=== PATIENT | male | born 1950 | race Caucasian/White ===

== ENCOUNTER → 2019-12-06 | Outpatient (CLI) | payer MEDICARE, OTHER, SELFPAY ==
--- NOTE | 2019-12-06 15:00 | RAD_ITS ---
STUDY: X-RAY CHEST REASON FOR EXAM: Male, 69 years old. HAS HAD COUGH FOR 5-6 WEEKS. TECHNIQUE: PA and lateral views of the chest. COMPARISON: None. FINDINGS: The lungs are clear and expanded. There is no demonstrated pleural abnormality. Normal size heart. Normal mediastinum and kemal. Normal visualized pulmonary arteries. Normal visualized aortic arch and descending thoracic aorta. Normal visualized thoracic spine. Normal visualized ribs, clavicles, and shoulders. There is no demonstrated abnormality of the visualized soft tissue structures of the upper abdomen. RAD/Chest PA and Lateral IMPRESSION: Normal x-ray examination of the chest. Electronically Signed: Pedro Maya MD at 9:34 EST Tel , Service support ,
== END | disposition home or self-care (01) ==
DX: R05 Cough (principal)
CPT/HCPCS: 71046

== ENCOUNTER → 2022-10-27 | Outpatient (CLI) | payer MEDICARE, OTHER, SELFPAY | END | disposition home or self-care (01) | PROVIDERS: Referring Provider Internal Medicine Critical Care Medicine; Visit Provider Internal Medicine Critical Care Medicine | DX: G47.10 Hypersomnia, unspecified (principal) | CPT/HCPCS: 95810 ==

== ENCOUNTER 2022-11-13 10:31 | Emergency (ER) | payer MEDICARE, OTHER, SELFPAY ==
[2022-11-13 10:32] VITALS: BP 132/92; PULSE 76; RESP 17; TEMP 35.7; O2SAT 97; BMI 28.5
--- NOTE | 2022-11-13 10:53 | RAD_ITS ---
STUDY: X-RAY - UNILATERAL RIBS ( LEFT ) WITH CHEST REASON FOR EXAM: Male, 72 years old. Chest and rib pain after fall TECHNIQUE - RIBS: 4 view(s) of the ribs. TECHNIQUE - CHEST: Single PA view of the chest. COMPARISON: None. FINDINGS - RIBS: Normal visualized ribs without a demonstrated fracture. FINDINGS - CHEST: The lungs are clear and expanded. There is no demonstrated pleural abnormality. Normal size heart. Normal mediastinum and kemal. Normal visualized pulmonary arteries. Normal visualized aortic arch and descending thoracic aorta. There are diffuse degenerative changes of the visualized thoracic spine. Normal visualized ribs, clavicles, and shoulders. There is no demonstrated abnormality of the visualized soft tissue structures of the upper abdomen. RAD/Ribs Uni Min 3V w/PA Chest IMPRESSION: RIBS: Normal x-ray examination of the ribs. CHEST: No acute pulmonary process Electronically Signed: Ramana Warner MD at 11:16 EST ,
--- NOTE | 2022-11-13 10:54 | EDS_ITS ---
HPI HPI - Fall History of Present Illness Chief Complaint: Fall Informant: patient Narrative Narrative: Patient is a 72-year-old male presenting with left-sided rib pain after fall. 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 He is not exactly sure how he landed but he struck his left ribs and is having significant pain at this time. He denies seeing his head or any loss of conscious. He notes immediately after the fall he was little dizzy but attributes that to his pain. His is currently out of town skiing so he drove himself to the emergency room. He denies any associated numbness, focal weakness or any other complaints. He is not on any blood thinners. Did not take anything for pain prior to arrival. No other complaints at this time. PFSH PFSH Home Medications oxycodone-acetaminophen 5 mg-325 mg tablet (Percocet) 1 tab PO Q6H PRN pain 3 days #12 tabs 11/13/22 [Rx Last Taken Unknown] Allergy/AdvReac Type Severity Reaction Status Date / Time No Known Allergies Allergy Verified 11/13/22 10:31 Social History Smoking Status: Never smoker ROS ROS ED Constitutional Constitutional ED: Denies chills or fever(s) Eyes Eyes: Denies blurry vision Cardiovascular Cardiovascular: Reports chest pain Respiratory/Chest Respiratory/Chest: Denies cough or dyspnea Gastrointestinal Gastrointestinal: Denies nausea or vomiting Integumentary Denies Abrasions or rash Neurologic Neurologic: Denies headache(s) or paresthesias Hematologic/Lymphatic Hematologic/Lymphatic: Denies easy bleeding or easy bruising EXAM Physical Exam Const Vital Signs: 11/13/22 10:32 11/13/22 10:39 Temperature 96.2 F L Temperature Source Temporal Pulse Rate 76 Respiratory Rate 17 Respiratory Effort Normal Non-Labored Respiratory Depth Normal Respiratory Pattern Normal Blood Pressure 132/92 H Blood Pressure Mean 105 Pulse Ox 97 Oxygen Delivery Method Room Air Room Air Positive well nourished and well developed General Appearance ED: well developed and NAD HEENT Reports normocephalic atraumatic Eyes PERRL and EOMs intact bilaterally Neck full ROM and supple General: Negative for tenderness Chest Wall inspection of chest normal Chest Narrative: Significant tenderness palpation of the right anterior chest wall around approximately ribs 8 through 10. No flail chest or obvious deformity appreciated. No chest wall crepitus appreciated Resp normal respiratory effort and clear to auscultation bilaterally Cardio regular rate, regular rhythm and no murmurs GI non-tender and non-distended Extremity Extremity Narrative: Normal range of motion. Normal gait. No obvious deformity of the extremities. Neuro oriented x3, moves all extremities and no focal motor deficits Neuro Narrative: GCS equals 15 Sensorium / Orientation: alert Psych mental status grossly normal Skin Skin Narrative: Small area of ecchymosis/skin tear to the left lateral elbow. No active bleeding appreciated. MDM MDM MDM Narrative Medical decision making narrative: Patient is evaluated for left-sided rib pain after fall. He did not hit his head and I do not think he needs further evaluation for closed head injury. Will obtain rib series x-ray looking for possible rib fracture as well as associated pneumothorax. Patient's vital signs are normal and he is not hypoxic. Patient drove himself here so he was given a Lidoderm patch and Tylenol at this time. Rib series interpreted by myself as well as radiology does not show any associated pneumothorax, infiltrate or acute rib fracture. Patient has minimal improvement with the Lidoderm and Tylenol while in the emergency room. As he drove himself here he is not given anything sedating. Patient is given a prescription for Percocet for further pain control. Counseled on the risk of confusion and falls associated with opioid use as well as opioid-induced constipation. Is given an incentive spirometer and counseled how to use it as well as the importance of preventing a secondary pneumonia. Given return precautions. Patient discharged home in stable condition. Verbalized agreement and understanding of this plan. Radiography Diagnostic Testing: Clinical Impression(s) from Imaging Studies Ribs w/Chest X-Ray 11/13/22 10:53 IMPRESSION: RIBS: Normal x-ray examination of the ribs. CHEST: No acute pulmonary process Electronically Signed: Ramana Warner MD at 11:16 EST , Discharge Plan Triage Chief Complaint: Fall ED Provider: Godman,Leidy Dx/Rx/DC Orders Clinical Impression: Contusion of rib on left side, Left-sided chest wall pain Instructions: ED Rib Contusion or Minor Fracture Prescriptions: New oxycodone-acetaminophen [Percocet] 5-325 mg tablet 1 tab PO Q6H PRN (Reason: pain) 3 Days Qty: 12 0RF Primary Care Provider: Kiya Vernon Referrals: Kiya Vernon MD [Primary Care Provider] - Activity Restrictions/Additional Instructions: Use the incentive spirometer regularly as we discussed or please take large breaths to help prevent a secondary pneumonia. Your chest x-ray did not show any lung injury, collapsed lung or large rib fracture. 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 Use [id number] Lidoderm patches (extra strength 4%) and you may also take ibuprofen as long as you have no contraindications to it from your primary care doctor. The pain medicine you are prescribed does cause constipation I recommend you take either stool softener or MiraLAX with it to prevent opioid-induced constipation. In addition it can increase your risk of falls or confusion so please be careful when taking it. Disposition Disposition: Home, Self Care
[2022-11-13] MEDS: Acetaminophen 325 MG Tablet 650 MG PO (11:07)
[2022-11-13] MEDS: Lidocaine 5% Patch 1 PATCH TOPICAL (11:08)
== END 2022-11-13 12:38 | disposition home or self-care (01) ==
PROVIDERS: Emergency Provider Emergency Medicine; Visit Provider Emergency Medicine
DX: S20.20XA Contusion of thorax, unspecified, initial encounter (principal); W19.XXXA Unspecified fall, initial encounter
CPT/HCPCS: 71101; 99282

== ENCOUNTER 2024-03-16 16:17 | Outpatient (CLI) | payer MEDICARE, OTHER, SELFPAY ==
[2024-03-16 17:53] LABS: Absolute Lymphocyte Count 1.48 X10^3/uL (0.83-4.51); Absolute Neutrophil Count 3.8 X10^3/uL (2.0-7.7); Basophil# 0.05 X10^3/uL; Basophil% 0.8 % (0-1); Eosinophils% 3.2 % (0-5); Hematocrit 41.3 % (40-54); Hemoglobin 13.4 g/dL (13.0-16.5); Lymphocyte # 1.48 X10^3/ul (0.83-4.51); Lymphocyte % 23.9 % (19-41); Mean Corp Hgb Conc 32.4 g/dL (32-36); Mean Corpuscular Hgb 29.6 pg (27.0-32.0); Mean Corpuscular Volume 91.2 fL (80-94); Mean Platelet Vol. 10.1 fl (6.2-12.0); Monocyte# 0.65 X10^3/uL; Monocyte% 10.5 % (0-10); NRBC Flagged by Analyzer 0 % (0-5); Neutrophil # 3.79 X10^3/uL (2.7-7.7); Neutrophil % 61.1 % (47-70); Platelet Count 193 K/mm3 (150-450); RBC Distribution Width CV 13.7 % (11.6-14.6); RBC Distribution Width SD 46.1 fl (35.1-43.9); Red Blood Count 4.53 M/mm3 (4.6-6.2); White Blood Count 6.2 K/mm3 (4.4-11.0)
[2024-03-16 18:09] LABS: Vitamin B12 555 pg/mL (211-911)
[2024-03-16 18:49] LABS: ALB/GLOB Ratio 1.2 RATIO (0.9-2.4); AST(SGOT) 23 U/L (15-37); Alanine Aminotransfer ALT/SGPT 31 U/L (16-61); Albumin, Serum 3.6 g/dL (3.2-5.0); Alkaline Phosphatase 91 U/L (45-117); Anion Gap 7 (5-15); BUN 20 mg/dL (7-18); BUN/Creat Ratio 27.6 RATIO (10-20); Calcium,Total 8.9 mg/dL (8.5-10.1); Chloride 106 mmol/L (98-107); Cholesterol 127 mg/dL (200); Creatinine, Serum 0.72 mg/dL (0.70-1.30); EST Glomerular Filtration Rate 112 mL/min (>60); Est Glom Filt Rate - Afr Amer 136 mL/min (>60); Ferritin 50 ng/mL (26-388); Free T3 2.3 pg/mL (2.18-3.98); Globulin 3.1 g/dL (2.2-4.2); Glucose 94 mg/dL (74-106); High Density Lipoprotein 58 mg/dL; Potassium 3.7 mmol/L (3.5-5.1); Protein, Total 6.7 g/dL (6.4-8.2); Sodium Level 137 mmol/L (136-145); T4 Free Direct 1.05 ng/dL (0.76-1.46); Thyroid Stim Hormone (TSH) 4.29 uIU/mL (0.358-3.74)
[2024-03-18 08:08] LABS: LDL, Direct 120295 64 mg/dL (0-99)
== END 2024-03-16 23:59 | disposition home or self-care (01) ==
LOC: MTLAB 16:18
PROVIDERS: PCP Family Medicine; Referring Provider Family Medicine; Visit Provider Family Medicine
DX: I10 Essential (primary) hypertension (principal); G25.81 Restless legs syndrome; E03.9 Hypothyroidism, unspecified; E78.5 Hyperlipidemia, unspecified
CPT/HCPCS: 36415; 80053; 82465; 82607; 82728; 82746; 83718; 83721; 84439; 84443; 84481; 85025

== ENCOUNTER → 2024-05-30 | Outpatient (CLI) | payer MEDICARE, OTHER, SELFPAY ==
--- NOTE | 2024-05-30 08:15 | CT_ITS ---
STUDY: CT CHEST WITHOUT CONTRAST REASON FOR EXAM: Male, 73 years old. 3mm lung nodule RADIATION DOSAGE (If Supplied By Facility): CTDIvol = ( 8.50 ) mGy, DLP = ( 316.96 ) mGycm TECHNIQUE: Transaxial imaging was performed without the administration of intravenous contrast material. Multiplanar coronal and sagittal images were reformatted. Individualized dose optimization techniques were used for this CT. COMPARISON: No relevant priors. FINDINGS: CHEST Mild degree of reticular nodular changes in the lower lobes more prominent at the right lung base. This most likely represents scarring. There is no demonstrated pleural abnormality. There are calcifications of the coronary arteries. Normal mediastinum. Normal hilar regions. Normal unenhanced pulmonary arteries. There is atherosclerotic calcification of the aortic arch with tortuosity and elongation of the aortic arch and descending thoracic aorta. There are multi-level degenerative changes of the thoracic spine. Small hiatal hernia. CT/Chest without Contrast IMPRESSION: Mild degree of reticulonodular changes in the lower pole or pronounced in the right lung base suggestive of scarring. Electronically Signed: Brodie Fair MD at 16:07 EDT ,
== END | disposition home or self-care (01) ==
LOC: CT 08:15
PROVIDERS: PCP Family Medicine; Referring Provider Family Medicine; Visit Provider Family Medicine
DX: R91.1 Solitary pulmonary nodule (principal)
CPT/HCPCS: 71250

== ENCOUNTER → 2024-09-17 | Outpatient (CLI) | payer MEDICARE, OTHER, SELFPAY ==
--- NOTE | 2024-09-17 11:42 | RAD_ITS ---
EXAM: XR SINUSES/PARANASAL COMPLETE, 3 OR MORE VIEWS CLINICAL INDICATION: CHRONIC COUGH TECHNIQUE: Frontal, lateral and Torres views of the sinuses and paranasal structures. COMPARISON: No relevant prior studies available. FINDINGS: BONES/JOINTS: See below. SINUSES: Well-aerated paranasal sinuses. No air-fluid levels. No significant mucosal thickening. SOFT TISSUES: Intact orbits. Intact nasal bones. Intact calvarium. RAD/Sinuses min 3 Views IMPRESSION: No acute findings in the sinuses. Intact orbits and nasal bones. No visible nasal septal deviation. Electronically Signed: Mervat Ruff MD at 2:50 EST ,
[2024-09-17 13:00] LABS: Absolute Lymphocyte Count 1.32 X10^3/uL (0.83-4.51); Absolute Neutrophil Count 5.3 X10^3/uL (2.0-7.7); Basophil# 0.05 X10^3/uL; Basophil% 0.7 % (0-1); Eosinophil# 0.11 X10^3/uL; Eosinophils% 1.5 % (0-5); Hematocrit 42.7 % (40-54); Hemoglobin 14.3 g/dL (13.0-16.5); Lymphocyte # 1.32 X10^3/ul (0.83-4.51); Lymphocyte % 17.8 % (19-41); Mean Corp Hgb Conc 33.5 g/dL (32-36); Mean Corpuscular Hgb 29.8 pg (27.0-32.0); Mean Platelet Vol. 9.6 fl (6.2-12.0); Monocyte# 0.64 X10^3/uL; Monocyte% 8.6 % (0-10); NRBC Flagged by Analyzer 0 % (0-5); Neutrophil # 5.25 X10^3/uL (2.7-7.7); Platelet Count 217 K/mm3 (150-450); RBC Distribution Width CV 13.2 % (11.6-14.6); RBC Distribution Width SD 43.1 fl (35.1-43.9); White Blood Count 7.4 K/mm3 (4.4-11.0)
[2024-09-17 13:04] LABS: Erythrocyte Sedimentation Rate 5 mm/hr (0-20)
[2024-09-17 13:33] LABS: Microalbumin,Random Urine 5.4 mg/L (NO RANGE EST.); Microalbumin:Creatinine Ratio 11.3 mg/g CRE (<30 mg/g CRE)
[2024-09-17 14:13] LABS: ALB/GLOB Ratio 1.2 RATIO (0.9-2.4); AST(SGOT) 33 U/L (15-37); Alanine Aminotransfer ALT/SGPT 45 U/L (16-61); Albumin, Serum 3.8 g/dL (3.2-5.0); Alkaline Phosphatase 89 U/L (45-117); Anion Gap 8 (5-15); BUN 17 mg/dL (7-18); BUN/Creat Ratio 20.3 RATIO (10-20); CRP < 2.90 mg/L (0.0-3.0); Calcium,Total 9.3 mg/dL (8.5-10.1); Chloride 98 mmol/L (98-107); Creatinine, Serum 0.84 mg/dL (0.70-1.30); EST Glomerular Filtration Rate 95 mL/min (>60); Est Glom Filt Rate - Afr Amer 115 mL/min (>60); Globulin 3.2 g/dL (2.2-4.2); Glucose 104 mg/dL (74-106); Sodium Level 131 mmol/L (136-145); T4 Free Direct 1.03 ng/dL (0.76-1.46)
[2024-09-18 15:09] LABS: PROEL- A/G Ratio 1.4 (0.7-1.7); PROEL- Albumin 3.8 g/dL (2.9-4.4); PROEL- Alpha-1 Globulin 0.3 g/dL (0.0-0.4); PROEL- Alpha-2 Globulin 0.7 g/dL (0.4-1.0); PROEL- Gamma Globulin 0.7 g/dL (0.4-1.8); PROEL- Globulin, Total 2.7 g/dL (2.2-3.9); PROEL- TOTAL PROTEIN 6.5 g/dL (6.0-8.5); PROEL-M-Spike Not Observed g/dL (Not Observed)
== END | disposition home or self-care (01) ==
LOC: MTLAB 11:37
PROVIDERS: PCP Family Medicine; Referring Provider Family Medicine; Visit Provider Family Medicine
DX: R05.3 Chronic cough (principal); E03.9 Hypothyroidism, unspecified
CPT/HCPCS: 36415; 70220; 80053; 82043; 82570; 84165; 84439; 84443; 85025; 85652; 86140; 86431

== ENCOUNTER → 2024-09-19 | Outpatient (CLI) | payer MEDICARE, OTHER, SELFPAY ==
--- NOTE | 2024-09-19 17:51 | CT_ITS ---
STUDY: CT CHEST WITHOUT CONTRAST REASON FOR EXAM: Male, 74 years old. > 4 weeks non-productive cough with prior know lung nodule RADIATION DOSAGE (If Supplied By Facility): CTDIvol = ( 16.42 ) mGy, DLP = ( 558.18 ) mGycm TECHNIQUE: Transaxial imaging was performed without the administration of intravenous contrast material. Individualized dose optimization techniques were used for this CT. COMPARISON: CT of the chest dated May 30, 2024. FINDINGS: Thoracic inlet structures: THYROID: No thyroid lesions. Ultrasound is the goal standard for thyroid imaging if there are any concerns in this region. Esophagus is unremarkable. Chest/lungs: Redemonstration of mild interstitial fibrotic opacities scattered throughout both lungs. Mild cystic emphysematous changes are also present. No demonstrated pneumonic consolidation or active pulmonary edema or pleural effusion. Stable 5.4 mm fibrotic nodule in the anterior aspect of the right lower lobe abutting the interlobar fissure seen on image 80/117 series 4 unchanged since the prior study. This nodule should be followed up for year and until at least one year of stability is demonstrated. Redemonstration of numerous punctate calcifications in the posterior dependent aspects of the bilateral lower lobes associated with interstitial thickening and reticular nodular pattern consistent with sequela from prior inflammation/infection/old granulomatous process. Normal heart and pericardium. There are calcifications of the coronary arteries. Normal mediastinum. Normal hilar regions. Normal unenhanced pulmonary arteries. There is atherosclerotic calcification of the aortic arch with tortuosity and elongation of the aortic arch and descending thoracic aorta. Top normal diameter of the ascending aorta 4 cm. No mediastinal or hilar adenopathy. There are multi-level degenerative changes of the thoracic spine. BONES: No suspicious lytic or blastic abnormality. UPPER ABDOMEN: No acute pathology. CT/Chest without Contrast IMPRESSION: 1. Redemonstration of mild interstitial fibrotic opacities scattered throughout both lungs. Mild cystic emphysematous changes are also present. No demonstrated pneumonic consolidation or active pulmonary edema or pleural effusion. 2. CT lung cancer annual screening exam is recommended for any patient with high risk factors for malignancy including COPD, emphysema, smoking history, or interstitial lung disease. 3. Stable 5.4 mm fibrotic nodule in the anterior aspect of the right lower lobe abutting the interlobar fissure seen on image 80/117 series 4 unchanged since the prior study. This nodule should be followed for a year, until at least one year year of of stability is demonstrated. [employer] PULMONARY NODULE RECOMMENDATIONS (2017): Single nodule, <6 mm: Low risk, no routine follow-up. High risk: Optional CT at 12 months. Single nodule 6 to 8 mm, low risk: CT 6-12 months, then consider CT at 18-24 months. High risk: CT at 6-12 months, then CT at 18-24 months. Single nodule > 8mm, low risk: Consider CT at 3 months, PET/CT or tissue sampling. High risk: Consider CT at 3 months, PET/CT or tissue sampling. Multiple nodules <6 mm, low risk: No routine follow-up. High risk: Optional CT at 12 months. Multiple nodules 6-8 and > 8 mm, low risk CT at 3-6 months, then consider CT at 18-24 months. High risk: CT at 3-6 months, then at 18-24 months. Electronically Signed: Ministerio Merrill MD at 11:39 EST Reading Location ID and State: [facility] / [place] , Service support ,
== END | disposition home or self-care (01) ==
LOC: CT 17:50
PROVIDERS: PCP Family Medicine; Referring Provider Family Medicine; Visit Provider Family Medicine
DX: R05.3 Chronic cough (principal); R91.1 Solitary pulmonary nodule
CPT/HCPCS: 71250

== ENCOUNTER → 2024-10-08 | Outpatient (CLI) | payer MEDICARE, OTHER, SELFPAY ==
--- NOTE | 2024-10-08 14:55 | CDU_ITS ---
Reason For Study: Carotid Stenosis Rt. Velocities/BP Lt. Velocities/BP Prox CCA 77/15 cm/sec. Prox CCA 66/15 cm/sec. Mid CCA 71/13 cm/sec. Mid CCA 63/16 cm/sec. Dist CCA 57/15 cm/sec. Dist CCA 59/15 cm/sec. Prox ICA 81/12 cm/sec. Prox ICA 59/14 cm/sec. Mid ICA 62/19 cm/sec. Mid ICA 61/21 cm/sec. Dist ICA 48/18 cm/sec. Dist ICA 71/28 cm/sec. Rt. ICA/CCA = 1.1. Lt. ICA/CCA = 1.1. Prox ECA 110/12 cm/sec. Prox ECA 86/10 cm/sec. Rt. Vert. 38/10 cm/sec. Lt. Vert. 47/13 cm/sec. Right Extracranial There is heterogeneous, irregular atherosclerotic plaque noted in the right common carotid artery. There is heterogeneous, irregular atherosclerotic plaque noted in the right internal carotid artery. There is heterogeneous, irregular atherosclerotic plaque noted in the right external carotid artery. Antegrade flow is noted in the right vertebral artery. Left Extracranial There is heterogeneous, irregular atherosclerotic plaque noted in the left common carotid artery. There is heterogeneous, irregular atherosclerotic plaque noted in the left internal carotid artery. There is heterogeneous, irregular atherosclerotic plaque noted in the left external carotid artery. Antegrade flow is noted in the left vertebral artery. Procedure Carotid Duplex [id number]. This is a Carotid Duplex examination using B-mode, color flow and specral Doppler. Exam performed in department. VL/Carotid Duplex Ultrasound Interpretation Summary Mild (<50%) stenosis right extracranial internal carotid. Mild (<50%) stenosis left extracranial internal carotid. Patent and antegrade vertebrals bilaterally. Ordering Physician: Fozia Powell Referring Physician: Santos Garcia Performed By: Farheen Liu, EJ, RVT
== END | disposition home or self-care (01) ==
LOC: CVS 14:52
PROVIDERS: PCP Family Medicine; Referring Provider Internal Medicine; Visit Provider Internal Medicine
DX: R55 Syncope and collapse (principal)
CPT/HCPCS: 93880

== ENCOUNTER 2025-01-08 07:04 | Outpatient (CLI) | payer MEDICARE, OTHER, SELFPAY ==
[2025-01-08 07:48] LABS: Hematocrit 43.3 % (40-54); Hemoglobin 14.8 g/dL (13.0-16.5); Mean Corp Hgb Conc 34.2 g/dL (32-36); Mean Corpuscular Volume 90.6 fL (80-94); Mean Platelet Vol. 10.4 fl (6.2-12.0); Platelet Count 188 K/mm3 (150-450); RBC Distribution Width CV 13.2 % (11.6-14.6); RBC Distribution Width SD 44.1 fl (35.1-43.9); Red Blood Count 4.78 M/mm3 (4.6-6.2); White Blood Count 5.3 K/mm3 (4.4-11.0)
[2025-01-08 08:33] LABS: ALB/GLOB Ratio 1.7 RATIO (0.9-2.4); AST(SGOT) 34 U/L (<=37); Alanine Aminotransfer ALT/SGPT 32 U/L (<=46); Alkaline Phosphatase 81 U/L (40-129); Anion Gap 11 (5-15); BUN 21 mg/dL (4-19); BUN/Creat Ratio 24.9 RATIO (10-20); Calcium,Total 9.4 mg/dL (7.6-11.0); Carbon Dioxide 23.5 mmol/L (21.0-32.0); Chloride 102 mmol/L (98-108); Creatinine, Serum 0.85 mg/dL (0.70-1.20); EST Glomerular Filtration Rate 90 (>60); Globulin 2.4 g/dL (2.2-4.2); Glucose 111 mg/dL (70-99); Potassium 3.7 mmol/L (3.3-5.1); Protein, Total 6.5 g/dL (5.9-8.4); Sodium Level 136 mmol/L (133-145); Total Bilirubin 0.71 mg/dL (0.00-1.30)
[2025-01-08 12:21] LABS: Hemoglobin A1c 5.8 % (<=5.6)
[2025-01-08 13:49] LABS: Cholesterol 122 mg/dL (<=200); High Density Lipoprotein 59 mg/dL; Low Density Lipoprotein Calc. 52 mg/dL; Triglycerides 52 mg/dL; Very Low Density Lipoprotein 10 mg/dL (5-40); cholesterol:hdl ratio screen 2.05
== END 2025-01-08 23:59 | disposition home or self-care (01) ==
PROVIDERS: PCP Family Medicine; Referring Provider Internal Medicine; Visit Provider Internal Medicine
DX: E78.5 Hyperlipidemia, unspecified (principal); I10 Essential (primary) hypertension; R93.1 Abnormal findings on diagnostic imaging of heart and coronary circulation
CPT/HCPCS: 36415; 80053; 80061; 83036; 84443; 85027

== ENCOUNTER → 2025-06-04 | Outpatient (CLI) | payer MEDICARE, OTHER, SELFPAY ==
--- NOTE | 2025-06-04 13:10 | MRI_ITS ---
PROCEDURE: BRAIN W/WO CONTRAST 06/04/2025 REASON FOR EXAM: MEMORY LOSS TECHNIQUE: BRAIN W/WO CONTRAST Multiplanar and multisequence images were obtained. CONTRAST: Clariscan VOLUME: 17 mL FINDINGS: Mild global parenchymal atrophy. Periventricular white matter T2/FLAIR hyperintense foci likely representing moderate chronic microvascular ischemia. No evidence of acute hemorrhage or infarction. No extra-axial blood or fluid collections. No abnormal intracranial enhancement. Mild pansinus mucosal thickening. The mastoid air cells are clear. The calvarial vault and skull base are intact. MRI/Brain W/WO Contrast IMPRESSION: No acute intracranial abnormality. Reading Location: [id number]
== END | disposition home or self-care (01) ==
LOC: MRI 13:05
PROVIDERS: PCP Family Medicine; Referring Provider Family Medicine; Visit Provider Family Medicine
DX: R41.3 Other amnesia (principal)
CPT/HCPCS: 70553; A9575; A4216

== ENCOUNTER 2025-07-02 14:59 | Outpatient (RCR) | payer MEDICARE, OTHER, SELFPAY ==
--- NOTE | 2025-07-04 11:08 | HP.PTEVAL_ITS ---
Patient's Visit Information Visit Information Visit Information: DINORAH ALCANTARA is a 74 year old M referred to Physical Therapy by Dr. Santos Garcia MD with a diagnosis of R shoulder pain. Date of Evaluation: 07/02/25 Physical Therapist: Speedy Fox DPT Visit Plan Frequency: 1x/Week Duration: 4 Weeks Plan: 1) shoulder ER strengthening, IR strengthening, scapular strengthening. I gave him some strengthening exercises to take home today. Pt. is to complete on his own at this point in time prior to seeing physician. Subjective Subjective: Pt. is here today for his initial evaluation with diagnosis of R shoulder pain, inferior deltoid mass/probable hematoma. Pt. reports hurting while doing a rope work out and the rope snapped. Pt. reports the pain alleviated by the next day. He again hurt his arm playing golf. Pt. reports no N/T in either UE. Pt. is is still doing his classes, but has avoided certain movements. Pt. is sleeping well, but does have a some discomfort constantly, but not the severe pain he had experienced. Pt. reports altering his work outs due to pain with OH press. Pt. reports having an underlying pain, but there has been 2 occurrences of sharp pain. Pt. is hopeful to reduce symptoms to get back to all golfing and workout without issues. he does have a tissue mass near deltoid insertion. He reports this has been there for a while, unsure exact time frame, but was there prior to this injury. Pain R shoulder: Pain Intensity (Out of 10): 2 Pain Intensity Range: 0 and 4 Objective Objective: POSTURE: Pt. has fairly normal. Shoulder in good positioning. PALPATION: Pt. has some mild tenderness at anterior/lateral shoulder. Pt does have a tissue mass near deltoid insertion. Seems to be more of a lipoma type tissue. NEURO: Normal throughout BUEs. Normal sensation and normal DTR. ROM: Pt. has close to full ROM of R shoulder, but has marked limited functional IR (to gluteal region) MMT: Pt. has decent strength throughout BUEs, symmetrical except for ER on R side which is 4/5. No pain with MMT. -speeds, - empty can, - neer, - HK. Pt. did have slight weakness with empty can but no pain. PT. did not have much increase in symptoms with testing today. He did have some slight weakness with ER motions, but rest of his strength was symmetrical. Balance/Special Test Scores Quick DASH Score: 29.5450 Goals Goal 1:: LTG: Pt. to have full R shoulder ROM without increase in R shoulder pain. Goal Time Frame: 2-4 Weeks Goal 2:: LTG: Pt. to have symmetrical strength throughout BUEs allowing for him to complete all work out and recreational activities. Goal Time Frame: 4-6 Weeks Goal 3:: LTG: Pt. be able to complete all workout and golfing without increase in R shoulder pain. Goal Time Frame: 4-6 Weeks Rehabilitation Potential Physical Therapy Diagnosis: Pt. has signs and symptoms consistent with R shoulder pain. Pt. has some weakness with ER. I feel like his tissue mass at deltoid region is more of a lipoma like tissue. Pt. would benefit from PT to address his weakness in his RTC. Rehabilitation Potential: Excellent Anticipated Interventions Patient/Client Instruction: Educate patient on: Condition, Plan of Care, Risk Factors and Benefits of Fitness Program For the Purpose of:: To foster healthy habits, To improve decision making, To facilitate caregiver knowledge, To improve self management, To prevent re-injury and To improve ability to perform tasks related to life management Therapeutic Exercise to Include: Strength training, Power training, Flexibilty training, Passive ROM, Active ROM and Scapular Strength/Stabilization For the Purpose of:: To decrease pain, To improve nutrient delivery to tissue, To increase oxygenation perfusion, To improve muscle performance and motor function, To improve ability to perform ADL's, To increase tolerance to activity/condition/position and To improve performance and independence with ADL's Text: Thank you for the opportunity to evaluate your patient. For Medicare and Medicare HMO plans, please review the plan of care and approve it. It will need to be FAXED BACK to us at [phone] for Medicare purposes. For Medicare only, by signing this I certify the plan of care. Please let me know if there are questions or concerns regarding this plan of care. Physician Signature: Date:
== END 2025-07-02 19:00 | disposition home or self-care (01) ==
LOC: PT 14:59
PROVIDERS: PCP Family Medicine; Referring Provider Family Medicine; Visit Provider Family Medicine
DX: M25.511 Pain in right shoulder (principal); R22.9 Localized swelling, mass and lump, unspecified
CPT/HCPCS: 97161

== ENCOUNTER → 2025-07-09 | Outpatient (CLI) | payer MEDICARE, OTHER, SELFPAY ==
[2025-07-09 15:18] LABS: Color, Urine Yellow (Yellow); Glucose, Dipstick Normal (Normal); Hematocrit 41.8 % (40-54); Hemoglobin 14.1 g/dL (13.0-16.5); Immature Granulocytes Count 0.010 X10^3/uL (0.0-0.0); Ketone-Dipstick Negative (Negative); Leukocyte Esterase-Dipstick Negative /ul (Negative); Mean Corp Hgb Conc 33.7 g/dL (32-36); Mean Corpuscular Volume 89.7 fL (80-94); Mean Platelet Vol. 10.7 fl (6.2-12.0); NRBC Flagged by Analyzer 0 % (0-5); Nitrite-Dipstick Negative (Negative); Occult Blood-Urine Negative /ul (Negative); Platelet Count 184 K/mm3 (150-450); Protein-Dipstick 15 mg/dl (Negative); RBC Distribution Width CV 13.4 % (11.6-14.6); RBC Distribution Width SD 43.7 fl (35.1-43.9); Red Blood Count 4.66 M/mm3 (4.6-6.2); Specific Gravity, Urine 1.010 (1.002-1.030); Urine Bilirubin Dipstick Negative (Negative); White Blood Count 5.1 K/mm3 (4.4-11.0)
[2025-07-09 15:40] LABS: Microalbumin,Random Urine 17.5 mg/L (<20 mg/L)
[2025-07-09 19:15] LABS: AST(SGOT) 30 U/L (<=37); Alanine Aminotransfer ALT/SGPT 29 U/L (<=46); Albumin, Serum 4.2 g/dL (3.4-4.8); Alkaline Phosphatase 88 U/L (40-129); Anion Gap 12 (5-15); BUN 19 mg/dL (4-19); BUN/Creat Ratio 21.1 RATIO (10-20); Calcium,Total 9.1 mg/dL (7.6-11.0); Carbon Dioxide 23.2 mmol/L (21.0-32.0); Chloride 101 mmol/L (98-108); Globulin 2.2 g/dL (2.2-4.2); Glucose 183 mg/dL (70-99); PSA,Total - Annual Screen 1.87 ng/mL (0.02-4.00); Potassium 3.7 mmol/L (3.3-5.1)
== END | disposition home or self-care (01) ==
LOC: MFPLAB 13:50
PROVIDERS: PCP Family Medicine; Visit Provider Family Medicine
DX: R35.1 Nocturia (principal); Z12.5 Encounter for screening for malignant neoplasm of prostate
CPT/HCPCS: 80053; 81002; 82043; 84153; 85025; 87086; G0103

== ENCOUNTER → 2025-07-11 | Outpatient (CLI) | payer MEDICARE, OTHER, SELFPAY ==
--- NOTE | 2025-07-11 10:57 | US_ITS ---
PROCEDURE: EXT NON VASC LIMITED/SOFT TISS 07/11/2025 REASON FOR EXAM: PAIN, R INFERIOR DELTOID MASS TECHNIQUE: Procedure Code: [id number] Modality: US Procedure: EXT NON VASC LIMITED/SOFT TISS COMPARISON: None FINDINGS: There is a solid, hypoechoic, heterogeneous, smoothly marginated mass in the subcutaneous tissues of the right upper arm correlating to the area that is palpable and painful. This mass is wider than it is tall and does not produce any posterior shadowing. The mass measures 2.4 x 2.6 x 1.0 cm. It is most compatible with a probable lipoma. It is located approximately 3 mm below the skin surface. US/Ext Non Vasc Limited/Soft Tiss IMPRESSION: There is a benign-appearing solid mass in the subcutaneous tissues of the right upper arm correlating to the palpable area that is painful. This is most compatible with a lipoma. If it does increase in siz e, follow-up ultrasound is recommended. Reading Location: [id number]
== END | disposition home or self-care (01) ==
LOC: US 10:53
PROVIDERS: PCP Family Medicine; Referring Provider Family Medicine; Visit Provider Family Medicine
DX: M25.511 Pain in right shoulder (principal); R22.31 Localized swelling, mass and lump, right upper limb
CPT/HCPCS: 76882